=== PATIENT | male | born 1945 | race Caucasian/White ===

== ENCOUNTER 2022-11-14 12:05 | Observation (INO) ==
[2022-11-14 12:34] LABS: POC Calcium, Ionized 1.28 (1.16-1.32); POC Creatinine 2.2 (0.6-1.2); POC Potassium 4.4 (3.3-5.1)
[2022-11-14] MEDS ORDERED: 0.9 % SODIUM CHLORIDE 500 ML IV ONE ×2 (12:44→14:30)
--- NOTE | 2022-11-14 12:56 | Emergency Department Note ---
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 Patient is accompanied by his who states that the patient has had numerous falls since yesterday. Patient denies losing consciousness with the falls. He did hit his head with one of the falls this morning. He states that he becomes very weak and collapsed to the floor. His states that he is often confused after the falls. He denies a headache at this time. He denies any dizziness, chest pain, palpitations. He does report abdominal pain which sounds like a chronic issue ever since he had his surgery done last January. He also reports chronic back pain which is unchanged since the falls. He denies any focal weakness. He had an episode of vomiting yesterday though denies nausea at this time. He has chronic diarrhea at baseline though denies hematochezia or melena. He has an appointment with urology in 2 days to discuss his chronic hematuria. Denies fevers. Related Data Home Medications Medication Instructions Recorded Confirmed amlodipine 5 mg tablet 5 mg PO QDAY 11/17/16 10/27/22 atorvastatin 40 mg tablet 40 mg PO QDAY 11/17/16 10/27/22 temazepam 30 mg capsule 30 mg PO QHS 11/17/16 10/27/22 metformin 500 mg tablet,extended 500 mg PO QDAY 12/02/20 10/27/22 release 24 hr apixaban 5 mg tablet (Eliquis) 5 mg PO QDAY 08/10/22 10/27/22 duloxetine 30 mg capsule,delayed 30 mg PO QDAY 08/10/22 10/27/22 release gabapentin 300 mg capsule 600 mg PO TID 08/10/22 10/27/22 (Neurontin) methocarbamol 750 mg tablet 750 mg PO QID 11/14/22 11/14/22 Allergies Allergy/AdvReac Type Severity Reaction Status Date / Time isosorbide nitrate Allergy Unknown Rash and Uncoded 10/27/22 12:42 Severe headaches Review of Systems ROS ROS Narrative: Narrative: All systems ED: reviewed and negative except as stated. PFS Narrative Patient History Narrative: Narrative: Medical/Surgical/Family History All Active Problems (Updated 11/14/22 @ 16:06 by Alvin Heck MD) Acute retention of urine (Chronic) Diabetes mellitus, type II (Chronic) Hypercholesterolemia (Chronic) Chronic insomnia (Chronic) Nasal congestion (Chronic) Sinusitis (Chronic) CAD (coronary artery disease) (Chronic) PVD (peripheral vascular disease) (Chronic) RLS (restless legs syndrome) (Chronic) BPH (benign prostatic hyperplasia) (Chronic) Erectile dysfunction (Chronic) History of basal cell carcinoma (Chronic) Umbilical hernia (Chronic) History of left heart catheterization (Chronic) History of coronary angiogram (Chronic) HTN (hypertension) (Chronic) Tobacco abuse (Chronic) Other chest pain (Chronic) Hyperlipidemia (Chronic) Elevated PSA (Chronic) History of melanoma (Chronic) Fatigue (Chronic) Tinnitus (Chronic) Decreased hearing (Chronic) Dyspnea (Chronic) Slow urinary stream (Chronic) Urethral stricture (Chronic) UTI (urinary tract infection) (Chronic) Actinic keratosis (Chronic) Exposure to COVID-19 virus (Chronic) COPD (chronic obstructive pulmonary disease) (Chronic) Decreased renal function (Chronic) intermediate manager (current) use of anticoagulants (Chronic) snf (current) use of aspirin (Chronic) Malignant melanoma (Chronic) Skin cancer (Chronic) 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) Esophageal dysphagia (Chronic) Exposure to Agent [place] (Chronic) Urinary retention (Chronic) Chronic lower back pain (Chronic) Left lumbar radiculopathy (Chronic) Spinal stenosis in cervical region (Chronic) Pain in left knee (Chronic) Anxiety (Chronic) Callus of foot (Chronic) Nail dystrophy (Chronic) Hammertoe (Chronic) Other specified disorders of bone density and structure, multiple sites (Chronic) Tobacco use (Chronic) SOB (shortness of breath) (Chronic) Leg pain (Chronic) Right groin pain (Chronic) Lump (Chronic) Dizziness (Chronic) Dysphagia (Chronic) Palpitations (Chronic) Paresthesias (Chronic) Chest tightness (Chronic) Chronic headache (Chronic) Cataract (Chronic) [place] (hard of hearing) (Chronic) Back pain (Chronic) Pneumonia (Chronic) PTSD (post-traumatic stress disorder) (Chronic) Malaise (Chronic) Tingling (Chronic) Depression (Chronic) Difficulty walking (Chronic) Daytime sleepiness (Chronic) Atherosclerotic heart disease (Chronic) Cold feet (Chronic) Memory loss (Chronic) Confusion (Chronic) Snoring (Chronic) Paroxysmal nocturnal dyspnea (Chronic) Wears hearing aid (Chronic) Chest pain (Chronic) Near syncope (Chronic) Weakness (Chronic) Leg pain, bilateral (Chronic) Diaphoresis (Chronic) Muscle pain (Chronic) Joint pain (Chronic) Urinary frequency (Chronic) Hydronephrosis of left kidney (Chronic) Malignant neoplasm of left ureter (Chronic) Abdominal pain (Acute) Intra-abdominal lymphadenopathy (Acute) Orthostatic hypotension (Acute) Left pulmonary lesion (Acute) Recurrent falls (Acute) Medical History Actinic keratosis Acute retention of urine Anxiety Atherosclerotic heart disease Back pain BPH (benign prostatic hyperplasia) CAD (coronary artery disease) Callus of foot Bilateral Carcinoma in situ of skin of left ear Cataract Chest pain Chest tightness Chronic headache Chronic insomnia Chronic lower back pain Cold feet Confusion COPD (chronic obstructive pulmonary disease) Daytime sleepiness Decreased hearing Decreased renal function Depression Diabetes mellitus, type II w/ vascular complications Diaphoresis Difficulty walking Dizziness Dysphagia Dyspnea Exertion Elevated PSA Erectile dysfunction Esophageal dysphagia Exposure to Agent [place] Exposure to COVID-19 virus Fatigue Hammertoe History of angiography Coronary History of basal cell carcinoma left foot History of coronary angiogram History of left heart catheterization History of melanoma [place] (hard of hearing) HTN (hypertension) Hydronephrosis of left kidney Hypercholesterolemia Hyperlipidemia Joint pain Left lumbar radiculopathy Leg pain Leg pain, bilateral intermediate manager (current) use of anticoagulants intermediate manager (current) use of aspirin Lump Malaise Malignant melanoma Malignant neoplasm of left ureter Memory loss Muscle pain Nail dystrophy Nasal congestion Near syncope Other chest pain Other specified disorders of bone density and structure, multiple sites Pain in left knee Palpitations Paresthesias Paroxysmal nocturnal dyspnea Pneumonia PTSD (post-traumatic stress disorder) PVD (peripheral vascular disease) Right groin pain RLS (restless legs syndrome) Sinusitis Skin cancer Left arm Slow urinary stream Snoring SOB (shortness of breath) Spinal stenosis in cervical region Tingling Tinnitus Tobacco abuse Tobacco use Umbilical hernia Urethral stricture Urinary frequency Urinary retention UTI (urinary tract infection) Weakness Wears hearing aid Surgical History History of appendectomy History of basal cell carcinoma excision (10/15/15) left foot - Dr Shipley History of colonoscopy (04/16/15) History of cystoscopy (04/23/15) History of heart artery stent (~04/06/16) RCA/ Placement of 4 stents-2018 History of knee replacement (~08/2017) History of left knee replacement (~01/2020) History of nasal septoplasty History of percutaneous coronary intervention (09/10/14) to proximal left anterior descending artery with balloon angioplasty and placement of one drug-eluting stent History of prostate surgery (~01/2017) Holmium Laser Ablation History of surgery Left Ventriculography History of tonsillectomy History of total knee arthroplasty (~09/24/17) History of umbilical hernia repair (~2013) Hx of inguinal hernia surgery (~04/06/16) Family History Mother , age 65 Breast cancer Father , age 84 Emphysema, unspecified Parkinsonism Hypertension Diabetes Brother , age 50 Pneumonia Diabetes Sister , age 42 Breast cancer Other Heart attack Social History Smoking Status: Former smoker Alcohol Intake Frequency: holiday/special occasion only Substance Use: does not use Exam Narrative Narrative: Constitutional: Well-nourished, well-developed. No acute distress. HEENT: Normocephalic. Small contusion appreciated on the lateral eyelid and periorbital region. Patient denies any tenderness with palpation of the bilateral periorbital regions. No adair sign. No hemotympanum bilaterally. No obvious skull depressions or deformities appreciated. EOMI. Conjunctive are clear bilaterally. OP clear. Uvula midline. Moist mucous membranes. Throat s upple without adenopathy. Cardiovascular: Regular rate and rhythm. No murmurs, rubs, gallops. Pulmonary: No increased work of breathing. Lung sounds clear to auscultation bilaterally. No wheezing, rales, or rhonchi. Abdomen: Soft, nondistended. TTP around the stoma as well as in the right flank. Stoma is slightly protruding though is pink with no erythema surrounding the stoma site. I do not appreciate any blood in the urostomy bag though patient does have some sediment noted in the urostomy bag. Musculoskeletal: Normal muscular development. No obvious deformities. TTP of the medial joint line of the left knee. Patient has decreased ROM of the left knee secondary to pain and reports significant pain with flexion of the knee. No joint effusions appreciated. Patient reports tenderness with palpation of the bilateral paralumbar region. No tenderness with palpation directly over the cervical, thoracic or lumbar spine. No step-offs. Patient has full neck range of motion without eliciting pain. Skin: Warm, dry. No rash. Neurologic: Awake, alert, and oriented. Motor function grossly intact. Afocal. General Limitations: no limitations Course Course Course Narrative: The patient's blood pressure is soft into the low 90s, systolic, on arrival to ED. He did have a drop in his blood pressure to 78/49 with orthostatic vital signs. He was given 1 L NS. Patient was also tachycardic into the low 100s on arrival. He does not appear dehydrated on exam. WBC is WNL. Hemoglobin is stable at 9.7. EKG shows a sinus rhythm without findings to suggest acute cardiac ischemia. VBG shows a pH of 7.23. Acidemia etiology unclear. Lactic acid is WNL. Blood glucose is 166. Beta hydroxybutyrate negative. He is saturating in the high 90s on room air. Creatinine stable at 2.2. Troponin is negative. Urinalysis was collected and is pending. CT chest/abdomen/pelvis without contrast shows no acute pathology. 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 He also has a 10 mm nodule in the superior segment of the left lung which may represent a second primary lung carcinoma. He has unchanged atrophy of the left kidney as well as adenopathy in the left superior mediastinum, also suspicious for benign reactive adenopathy versus metastatic disease. Radiographs of the left knee and CT head show no ac mahogany pathology. Case was discussed with Dr. Moise who accepts patient for admission to the hospital for observation for orthostatic hypotension and recurrent falls. . Of note, the patient was recently started on methocarbamol which I suspect may also be contributing to falls. He also has a history of atrial fibrillation for which he is anticoagulated on Eliquis and it may also be possible that he is going in and out of A-fib which may be contributing as well. Consultations Consultation #1: Dr. Arroyo, internal medicine who accepts pt for admission Time: 15:45 Vital Signs Vital signs: Vital Signs Temperature 98.1 F 11/14/22 12:08 Pulse Rate 104 H 11/14/22 12:08 Respiratory Rate 18 11/14/22 12:08 Blood Pressure 91/57 11/14/22 12:08 Pulse Oximetry (%) 96 11/14/22 12:08 Oxygen Delivery Method Room Air 11/14/22 12:08 Temperature 98.1 F 11/14/22 12:08 Pulse Rate 96 H 11/14/22 14:24 Respiratory Rate 15 11/14/22 14:24 Blood Pressure 141/74 11/14/22 13:01 Pulse Oximetry (%) 99 11/14/22 14:24 Oxygen Delivery Method Room Air 11/14/22 12:08 MDM MDM Narrative Medical decision making narrative: Narrative: Differential Diagnosis Differential Diagnosis: Dysrhythmia, orthostatic hypotension, anemia, ICH, fracture, UTI Medical Records Medical records reviewed: Yes I reviewed the patient's medical records. Lab Data Lab results reviewed: Yes I reviewed the patient's lab results. 11/14/22 12:44 11/14/22 12:44 Labs: Lab Results 11/14/22 11/14/22 11/14/22 Range/Units 12:28 12:28 12:44 WBC 9.3 (4.5-11.0) K/mcL RBC 3.46 L (4.63-6.08) M/mcL Hgb 9.7 L (13.7-17.5) g/dL Hct 30.1 L (40.1-51.0) % POC Hct 30.0 L (41-55) MCV 87.0 (80.0-100.0) fL MCH 28.0 (26.0-34.0) pg MCHC 32.2 (31.0-36.0) g/dL RDW 13.3 (11.5-14.5) % Plt Count 328 (140-440) K/mcL MPV 10.3 (8.8-12.5) fL Immature Gran % (Auto) 0.4 (0.0-0.5) % Neut % (Auto) 63.8 (38.0-78.0) % Lymph % (Auto) 24.5 (15.5-49.0) % [place] % (Auto) 8.3 (1.0-12.0) % Eos % (Auto) 2.4 (0.0-7.0) % Baso % (Auto) 0.6 (0.0-2.0) % Lymph # (Auto) 2.28 (1.50-4.80) K/mcL [place] # (Auto) 0.77 (0.10-0.90) K/mcL Eos # (Auto) 0.22 (0.00-0.70) K/mcL Baso # (Auto) 0.06 (0.00-0.30) K/mcL Immature Gran # 0.04 (0.00-0.05) K/mcl Absolute Neutrophils 5.92 (1.80-8.00) K/mcL POC VBG pH (7.32-7.42) POC VBG pCO2 at Temp (41-51) POC VBG pO2 (25-40) POC VBG HCO3 (24-28) POC VBG Total CO2 (25-29) POC Venous O2 Sat (40-70) POC VBG Base Excess (-2-2) VBG Lactic Acid (0.5-2) POC Sodium 137 (133-145) POC Potassium 4.4 (3.3-5.1) POC Chloride 110 H (96-108) POC Total CO2 16.0 L (22-30) POC Anion Gap 16.0 (8.0-16.0) POC BUN 37 H (6-20) POC Creatinine 2.2 H (0.6-1.2) POC Glucose 166 H (70-105) POC WB Ioniz Calcium 1.28 (1.16-1.32) Total Bilirubin (0.1-1.0) mg/dL Direct Bilirubin (0-0.3) mg/dL AST (<40) U/L ALT (<40) U/L Alkaline Phosphatase (39-117) U/L NT-Pro-B Natriuret Pep (<450.0) pg/mL Total Protein (5.9-8.4) gm/dL Albumin (3.2-5.2) gm/dL Globulin (2.2-3.7) gm/dL Beta-Hydroxybutyrate (<0.27) mmol/L POC Troponin I < 0.02 L (0.02-0.08) 11/14/22 11/14/22 11/14/22 Range/Units 12:44 12:44 14:42 WBC (4.5-11.0) K/mcL RBC (4.63-6.08) M/mcL Hgb (13.7-17.5) g/dL Hct (40.1-51.0) % POC Hct (41-55) MCV (80.0-100.0) fL MCH (26.0-34.0) pg MCHC (31.0-36.0) g/dL RDW (11.5-14.5) % Plt Count (140-440) K/mcL MPV (8.8-12.5) fL Immature Gran % (Auto) (0.0-0.5) % Neut % (Auto) (38.0-78.0) % Lymph % (Auto) (15.5-49.0) % [place] % (Auto) (1.0-12.0) % Eos % (Auto) (0.0-7.0) % Baso % (Auto) (0.0-2.0) % Lymph # (Auto) (1.50-4.80) K/mcL [place] # (Auto) (0.10-0.90) K/mcL Eos # (Auto) (0.00-0.70) K/mcL Baso # (Auto) (0.00-0.30) K/mcL Immature Gran # (0.00-0.05) K/mcl Absolute Neutrophils (1.80-8.00) K/mcL POC VBG pH 7.23 L (7.32-7.42) POC VBG pCO2 at Temp 45.5 (41-51) POC VBG pO2 19 L (25-40) POC VBG HCO3 18.9 L (24-28) POC VBG Total CO2 20.0 L (25-29) POC Venous O2 Sat 21.0 L (40-70) POC VBG Base Excess -9.0 L (-2-2) VBG Lactic Acid 0.7 (0.5-2) POC Sodium (133-145) POC Potassium (3.3-5.1) POC Chloride (96-108) POC Total CO2 (22-30) POC Anion Gap (8.0-16.0) POC BUN (6-20) POC Creatinine (0.6-1.2) POC Glucose (70-105) POC WB Ioniz Calcium (1.16-1.32) Total Bilirubin 0.2 (0.1-1.0) mg/dL Direct Bilirubin < 0.2 (0-0.3) mg/dL AST 15 (<40) U/L ALT 12 (<40) U/L Alkaline Phosphatase 108 (39-117) U/L NT-Pro-B Natriuret Pep 123.7 (<450.0) pg/mL Total Protein 7.2 (5.9-8.4) gm/dL Albumin 3.8 (3.2-5.2) gm/dL Globulin 3.4 (2.2-3.7) gm/dL Beta-Hydroxybutyrate 0.17 (<0.27) mmol/L POC Troponin I (0.02-0.08) Radiology Data Radiology results reviewed: Yes I reviewed the patient's radiology results. Radiology results narrative: [facility] NAME: Kobe Tanner [address] [place] [address] : 1945 [address] Service Date: 11/14/22 Report # [id number] [place] [address] Homer Michael M.D. MR #: [id number] Cat Scan Report Signed Ordering Physician: Alvin Heck M.D. Date of Service: 11/14/22 Procedure(s): CT head/brain wo con Accession Number(s): [id number] CLINICAL INFORMATION: On anticoagulation history of multiple falls COMPARISON: None. TECHNIQUE: 2.5 mm helical slices were obtained in the skull base to vertex. Following reconstruction, axial reformatted images were reviewed at bone and parenchymal windows. The exam was performed using radiation dose optimization techniques including, but not limited to, automated exposure control, adjustment of the mA and/or kV according to patient size and use of iterative reconstruction technique. FINDINGS: The ventricles, sulci, fissures, and cisterns are symmetrically enlarged compatible with mild age-related atrophy. No extra-axial fluid collections are identified. Mild patchy chronic ischemic changes, in the deep cerebral white matter, are expected for age. There is no hemorrhage, mass effect, or edema. Bone windows show no osseous abnormality. IMPRESSION: Mild atrophy and chronic ischemic changes in the deep cerebral white matter-expected for age. No acute findings Interpreted and Authenticated by: Homer Michael 11/14/22 1342 134 Retail Representative: <Electronically signed by Homer Michael M.D. in OV> 11/14/22 1347 CC: Homer Michael M.D.; Alvin Heck M.D.; Suzanne Rincon M.D.~ [facility] NAME: Kobe Tanner [address] [place] [address] : 1945 [address] Service Date: 11/14/22 Report # [id number] JADA Thomas [address] Homer Michael M.D. MR #: [id number] XRay Report Signed Ordering Physician: Alvin Heck M.D. Date of Service: 11/14/22 Procedure(s): XR knee LT 3V Accession Number(s): [id number] CLINICAL INFORMATION: fall, left knee pain COMPARISON: 03/21/2020 FINDINGS: Total knee prosthesis remains anatomically aligned without loosening or infection. There is no fracture or other osseous abnormality. Soft tissues are normal. IMPRESSION: Negative Interpreted and Authenticated by: Homer Michael 11/14/22 1414 13 Retail Representative: <Electronically signed by Homer Michael M.D. in OV> 11/14/22 1415 CC: Homer Michael M.D.; Alvin Heck M.D.; Suzanne Rincon M.D.~ [facility] NAME: Kobe Tanner [address] [place] [address] : 1945 [address] Service Date: 11/14/22 Report # [id number] JADA Thomas [address] Homer Michael M.D. MR #: [id number] Cat Scan Report Signed Ordering Physician: Alvin Heck M.D. Date of Service: 11/14/22 Procedure(s): CT chest abdomen pelvis wo con Accession Number(s): [id number] CLINICAL INFORMATION: falls, abdominal pain, back pain, SOB COMPARISON: CT abdomen and pelvis 08/03/2022 TECHNIQUE: 0.625 mm helical slices were obtained from the lung apices through the subtrochanteric regions of the femurs. Following reconstruction, 2.5 mm sagittal, coronal and axial reformatted images were processed and reviewed at multiple windows and levels. 7 mm MIP reconstructions were obtained through the lungs to optimize nodule detection.The exam was performed using radiation dose optimization techniques including, but not limited to, automated exposure control, adjustment of the mA and/or kV according to patient size and use of iterative reconstruction technique. FINDINGS: Pulmonary parenchymal windows show mild centrilobular emphysema featuring chronic bronchitis with elevated lung volumes and wall thickening/dilatation of bronchi. Multiple bullae are seen in the upper lobes and scattered fibrosis in the periphery of both mid and lower lungs. A 10 mm well-circumscribed nodule in the superior segment of the left lower lobe on image 55 may represent primary or metastatic malignancy. A 13 mm pleural-based vague wedge-shaped density in the lateral basilar segment of the right lower lobe on image 86 is likely fibrosis. No infiltrates.. Pleural spaces are unremarkable-no effusions. Mediastinal windows show the heart is mildly enlarged. Multiple stents and heavy calcific plaque in the coronary arteries. The noncontrast thoracic aorta and pulmonary arteries are normal in diameter. There are 3-4 moderately enlarged lymph nodes in the left superior mediastinum adjacent to the carotid artery ranging up to 14 mm. There are also multiple lymph nodes in the left axillary region ranging up to 12 with edema in the surrounding fat. Esophagus is grossly normal. The thyroid is unremarkable. Abdominal images show the noncontrasted gallbladder and bile ducts, liver, adrenal glands, spleen, pancreas and aorta are normal in size, configuration and attenuation without focal lesion. There are multiple mildly enlarged retroperitoneal lymph nodes in the infrarenal periaortic and pericaval region ranging up to 18 mm inferior to the left renal hilum. These were not present on the previous exam. There is no free air or free fluid. The left kidney is atrophic: 7 cm in length. 17 mm cyst projecting from the lateral left kidney is unchanged Right kidney is normal size 11 cm in length. The lesion Urinary bladder is surgically absent and there is a urostomy in the right midabdomen. Transplanted ureters appear normal. Small bowel resection changes seen in the distal ileum. The remainder of the small bowel, large bowel and stomach are grossly normal. The appendix is surgically absent. Bone windows show no metastases or other significant osseous abnormality. IMPRESSION: 1. No posttraumatic change. 2. Multiple mildly enlarged retroperitoneal lymph nodes in the infrarenal periaortic and pericaval region. 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 3. 10 mm solid nodule in the superior segment of the left lower lobe may represent a second primary lung carcinoma. A solitary pulmonary metastasis from bladder carcinoma would be unusual . A second more vague triangle shaped pleural-based density in the lateral basilar segment right lower lobe more likely fibrosis. 4. Cystectomy changes with with urostomy right mid abdomen. Transplanted ureters appear normal. 5. Atrophy of the left kidney with mild compensatory hypertrophy of the right kidney. 6. Adenopathy in the left superior mediastinum and the left axillary region. This may be metastatic or benign reactive adenopathy. The constellation of findings in this patient will likely require PET/CT to determine the extent of metastatic disease. Interpreted and Authenticated by: Homer Michael 11/14/22 1348 1348 Retail Representative: <Electronically signed by Homer Michael M.D. in OV> 11/14/22 1414 CC: Homer Michael M.D.; Alvin Heck M.D.; Suzanne Rincon M.D.~ EKG Data EKG #1: EKG attestation: Yes I reviewed and interpreted this EKG. and Yes There are no EKG findings of acute coronary syndrome EKG results narrative: Sinus rhythm. Rate 93. Left axis deviation. No ST elevation or depression. Inferior Q waves. Normal T waves. Discharge Plan Patient/Caregiver Discharge Instructions Pt seen by LEAD INVESTIGATOR/PA only: No Clinical Impression: Intra-abdominal lymphadenopathy, Orthostatic hypotension, Left pulmonary lesion, Recurrent falls Patient Disposition: Xfer As Inpt ([facility]) Condition: Fair Follow up with: Suzanne Rincon MD [Primary Care Provider] - Prescriptions: No Action amlodipine 5 mg tablet 5 mg PO QDAY atorvastatin 40 mg tablet 40 mg PO QDAY temazepam 30 mg capsule 30 mg PO QHS metformin 500 mg tablet extended release 24 hr 500 mg PO QDAY gabapentin [Neurontin] 300 mg capsule 600 mg PO TID Eliquis 5 mg tablet 5 mg PO QDAY Patient Comments: [NO ORIGINAL SIG] methocarbamol [Robaxin] 750 mg Tablet 750 mg PO QID duloxetine 30 mg capsule,delayed release(DR/EC) 30 mg PO QDAY
[2022-11-14 13:22] LABS: Basophils # (Auto) 0.06 K/mcL (0.00-0.30); Basophils % (Auto) 0.6 % (0.0-2.0); Eosinophils # (Auto) 0.22 K/mcL (0.00-0.70); Eosinophils % (Auto) 2.4 % (0.0-7.0); Hematocrit 30.1 % (40.1-51.0); Hemoglobin 9.7 g/dL (13.7-17.5); Lymphocytes # (Auto) 2.28 K/mcL (1.50-4.80); Lymphocytes % (Auto) 24.5 % (15.5-49.0); Mean Corpuscular HGB Conc 32.2 g/dL (31.0-36.0); Mean Platelet Volume 10.3 fL (8.8-12.5); Monocytes # (Auto) 0.77 K/mcL (0.10-0.90); Monocytes % (Auto) 8.3 % (1.0-12.0); Neutrophils % (Auto) 63.8 % (38.0-78.0); Platelet Count 328 K/mcL (140-440); RBC 3.46 M/mcL (4.63-6.08); Red Cell Distribution Width 13.3 % (11.5-14.5); WBC 9.3 K/mcL (4.5-11.0)
[2022-11-14 13:43] LABS: ALT/SGPT 12 U/L (<40); AST/SGOT 15 U/L (<40); Albumin 3.8 gm/dL (3.2-5.2); Alkaline Phosphatase 108 U/L (39-117); Bilirubin,Direct < 0.2 mg/dL (0-0.3); Bilirubin,Total 0.2 mg/dL (0.1-1.0); Globulin 3.4 gm/dL (2.2-3.7)
[2022-11-14 13:44] LABS: proBNP 123.7 pg/mL (<450.0)
--- NOTE | 2022-11-14 13:52 | Cat Scan Report ---
CLINICAL INFORMATION: On anticoagulation history of multiple falls COMPARISON: None. TECHNIQUE: 2.5 mm helical slices were obtained in the skull base to vertex. Following reconstruction, axial reformatted images were reviewed at bone and parenchymal windows. The exam was performed using radiation dose optimization techniques including, but not limited to, automated exposure control, adjustment of the mA and/or kV according to patient size and use of iterative reconstruction technique. FINDINGS: The ventricles, sulci, fissures, and cisterns are symmetrically enlarged compatible with mild age-related atrophy. No extra-axial fluid collections are identified. Mild patchy chronic ischemic changes, in the deep cerebral white matter, are expected for age. There is no hemorrhage, mass effect, or edema. Bone windows show no osseous abnormality. IMPRESSION: Mild atrophy and chronic ischemic changes in the deep cerebral white matter-expected for age. No acute findings Interpreted and Authenticated by: Homer Michael 11/14/22
--- NOTE | 2022-11-14 14:18 | Cat Scan Report ---
CLINICAL INFORMATION: falls, abdominal pain, back pain, SOB COMPARISON: CT abdomen and pelvis 08/03/2022 TECHNIQUE: 0.625 mm helical slices were obtained from the lung apices through the subtrochanteric regions of the femurs. Following reconstruction, 2.5 mm sagittal, coronal and axial reformatted images were processed and reviewed at multiple windows and levels. 7 mm MIP reconstructions were obtained through the lungs to optimize nodule detection.The exam was performed using radiation dose optimization techniques including, but not limited to, automated exposure control, adjustment of the mA and/or kV according to patient size and use of iterative reconstruction technique. FINDINGS: Pulmonary parenchymal windows show mild centrilobular emphysema featuring chronic bronchitis with elevated lung volumes and wall thickening/dilatation of bronchi. Multiple bullae are seen in the upper lobes and scattered fibrosis in the periphery of both mid and lower lungs. A 10 mm well-circumscribed nodule in the superior segment of the left lower lobe on image 55 may represent primary or metastatic malignancy. A 13 mm pleural-based vague wedge-shaped density in the lateral basilar segment of the right lower lobe on image 86 is likely fibrosis. No infiltrates.. Pleural spaces are unremarkable-no effusions. Mediastinal windows show the heart is mildly enlarged. Multiple stents and heavy calcific plaque in the coronary arteries. The noncontrast thoracic aorta and pulmonary arteries are normal in diameter. There are 3-4 moderately enlarged lymph nodes in the left superior mediastinum adjacent to the carotid artery ranging up to 14 mm. There are also multiple lymph nodes in the left axillary region ranging up to 12 with edema in the surrounding fat. Esophagus is grossly normal. The thyroid is unremarkable. Abdominal images show the noncontrasted gallbladder and bile ducts, liver, adrenal glands, spleen, pancreas and aorta are normal in size, configuration and attenuation without focal lesion. There are multiple mildly enlarged retroperitoneal lymph nodes in the infrarenal periaortic and pericaval region ranging up to 18 mm inferior to the left renal hilum. These were not present on the previous exam. There is no free air or free fluid. The left kidney is atrophic: 7 cm in length. 17 mm cyst projecting from the lateral left kidney is unchanged Right kidney is normal size 11 cm in length. The lesion Urinary bladder is surgically absent and there is a urostomy in the right midabdomen. Transplanted ureters appear normal. Small bowel resection changes seen in the distal ileum. The remainder of the small bowel, large bowel and stomach are grossly normal. The appendix is surgically absent. Bone windows show no metastases or other significant osseous abnormality. IMPRESSION: 1. No posttraumatic change. 2. Multiple mildly enlarged retroperitoneal lymph nodes in the infrarenal periaortic and pericaval region. 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 3. 10 mm solid nodule in the superior segment of the left lower lobe may represent a second primary lung carcinoma. A solitary pulmonary metastasis from bladder carcinoma would be unusual . A second more vague triangle shaped pleural-based density in the lateral basilar segment right lower lobe more likely fibrosis. 4. Cystectomy changes with with urostomy right mid abdomen. Transplanted ureters appear normal. 5. Atrophy of the left kidney with mild compensatory hypertrophy of the right kidney. 6. Adenopathy in the left superior mediastinum and the left axillary region. This may be metastatic or benign reactive adenopathy. The constellation of findings in this patient will likely require PET/CT to determine the extent of metastatic disease. Interpreted and Authenticated by: Homer Michael 11/14/22
--- NOTE | 2022-11-14 14:18 | XRay Report ---
CLINICAL INFORMATION: fall, left knee pain COMPARISON: 03/21/2020 FINDINGS: Total knee prosthesis remains anatomically aligned without loosening or infection. There is no fracture or other osseous abnormality. Soft tissues are normal. IMPRESSION: Negative Interpreted and Authenticated by: Homer Michael 11/14/22
--- NOTE | 2022-11-14 16:33 | Internal Med History&Physical ---
HPI History of Present Illness Patient information: Note initiated : 11/14/22 at 4:18 pm Service Date, if different from initiated Date: [] Patient: Kobe Tanner a 77 y/o M admitted on . Chief Complaint: [] History of present illness: Mr. Tanner is a 77 year old M Presents to the ED after falling 3 times today while he was in the supermarket. He also fell several times in the past week. Patient states that he suddenly gets weak and falls. He does not lose consciousness does not get dizzy or lightheaded just gets suddenly very weak and falls. 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 He did have an episode of nausea vomiting yesterday. Work-up in the ED revealed positive orthostatic hypotension vital signs. Mild t achycardia since been here. BUN/cr was mildly elevated above baseline. Patient has chronic diarrhea but has been worse since surgery. EKG in the ED showed normal sinus rhythm. Troponin unremarkable. Lactate unremarkable. He also noted to have an nonanion gap acidosis, likely from chronic diarrhea. His chronic anemia appears to be at baseline. Patient denies chest pain shortness of breath. No abdominal pain. Review of Systems: Pertinent positives as above. Denies headache/fever/chills/chest or abdominal pain/cough/dyspnea. Remaining 10 point review of system reviewed negative PHYSICAL EXAM General: Alert, Awake, No acute Distress Eyes/N/T: EOMI, no scleral icterus, PERRL, DMM Head/Neck: neck supple, full ROM, normocephalic atraumatic CV: Mildly tacky but regular, No murmurs, normal s1/s2 Pulm: Clear b/l, no wheezing/rhonchi/rales, no respiratory distress Abd: soft, nontender, +BS x4 Ext: no clubbing/cyanosis/edema, nontender Neuro: Alert, CN 2-12 grossly intact, no focal deficits, moves all extremities, , sensations intact b/l upper/lower Psychiatric: Skin: warm/dry, normal color PFSH PFSH All Active Problems (Updated 11/14/22 @ 16:06 by Alvin Heck MD) Acute retention of urine (Chronic) Diabetes mellitus, type II (Chronic) Hypercholesterolemia (Chronic) Chronic insomnia (Chronic) Nasal congestion (Chronic) Sinusitis (Chronic) CAD (coronary artery disease) (Chronic) PVD (peripheral vascular disease) (Chronic) RLS (restless legs syndrome) (Chronic) BPH (benign prostatic hyperplasia) (Chronic) Erectile dysfunction (Chronic) History of basal cell carcinoma (Chronic) Umbilical hernia (Chronic) History of left heart catheterization (Chronic) History of coronary angiogram (Chronic) HTN (hypertension) (Chronic) Tobacco abuse (Chronic) Other chest pain (Chronic) Hyperlipidemia (Chronic) Elevated PSA (Chronic) History of melanoma (Chronic) Fatigue (Chronic) Tinnitus (Chronic) Decreased hearing (Chronic) Dyspnea (Chronic) Slow urinary stream (Chronic) Urethral stricture (Chronic) UTI (urinary tract infection) (Chronic) Actinic keratosis (Chronic) Exposure to COVID-19 virus (Chronic) COPD (chronic obstructive pulmonary disease) (Chronic) Decreased renal function (Chronic) 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) MCC (current) use of aspirin (Chronic) Malignant melanoma (Chronic) Skin cancer (Chronic) 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) Esophageal dysphagia (Chronic) Exposure to Agent [place] (Chronic) Urinary retention (Chronic) Chronic lower back pain (Chronic) Left lumbar radiculopathy (Chronic) Spinal stenosis in cervical region (Chronic) Pain in left knee (Chronic) Anxiety (Chronic) Callus of foot (Chronic) Nail dystrophy (Chronic) Hammertoe (Chronic) Other specified disorders of bone density and structure, multiple sites (Chronic) Tobacco use (Chronic) SOB (shortness of breath) (Chronic) Leg pain (Chronic) Right groin pain (Chronic) Lump (Chronic) Dizziness (Chronic) Dysphagia (Chronic) Palpitations (Chronic) Paresthesias (Chronic) Chest tightness (Chronic) Chronic headache (Chronic) Cataract (Chronic) UPPER [place] (hard of hearing) (Chronic) Back pain (Chronic) Pneumonia (Chronic) PTSD (post-traumatic stress disorder) (Chronic) Malaise (Chronic) Tingling (Chronic) Depression (Chronic) Difficulty walking (Chronic) Daytime sleepiness (Chronic) Atherosclerotic heart disease (Chronic) Cold feet (Chronic) Memory loss (Chronic) Confusion (Chronic) Snoring (Chronic) Paroxysmal nocturnal dyspnea (Chronic) Wears hearing aid (Chronic) Chest pain (Chronic) Near syncope (Chronic) Weakness (Chronic) Leg pain, bilateral (Chronic) Diaphoresis (Chronic) Muscle pain (Chronic) Joint pain (Chronic) Urinary frequency (Chronic) Hydronephrosis of left kidney (Chronic) Malignant neoplasm of left ureter (Chronic) Abdominal pain (Acute) Intra-abdominal lymphadenopathy (Acute) Orthostatic hypotension (Acute) Left pulmonary lesion (Acute) Recurrent falls (Acute) Medical History Actinic keratosis Acute retention of urine Anxiety Atherosclerotic heart disease Back pain BPH (benign prostatic hyperplasia) CAD (coronary artery disease) Callus of foot Bilateral Carcinoma in situ of skin of left ear Cataract Chest pain Chest tightness Chronic headache Chronic insomnia Chronic lower back pain Cold feet Confusion COPD (chronic obstructive pulmonary disease) Daytime sleepiness Decreased hearing Decreased renal function Depression Diabetes mellitus, type II w/ vascular complications Diaphoresis Difficulty walking Dizziness Dysphagia Dyspnea Exertion Elevated PSA Erectile dysfunction Esophageal dysphagia Exposure to Agent [place] Exposure to COVID-19 virus Fatigue Hammertoe History of angiography Coronary History of basal cell carcinoma left foot History of coronary angiogram History of left heart catheterization History of melanoma UPPER [place] (hard of hearing) HTN (hypertension) Hydronephrosis of left kidney Hypercholesterolemia Hyperlipidemia Joint pain Left lumbar radiculopathy Leg pain Leg pain, bilateral MCC (current) use of anticoagulants MCC (current) use of aspirin Lump Malaise Malignant melanoma Malignant neoplasm of left ureter Memory loss Muscle pain Nail dystrophy Nasal congestion Near syncope Other chest pain Other specified disorders of bone density and structure, multiple sites Pain in left knee Palpitations Paresthesias Paroxysmal nocturnal dyspnea Pneumonia PTSD (post-traumatic stress disorder) PVD (peripheral vascular disease) Right groin pain RLS (restless legs syndrome) Sinusitis Skin cancer Left arm Slow urinary stream Snoring SOB (shortness of breath) Spinal stenosis in cervical region Tingling Tinnitus Tobacco abuse Tobacco use Umbilical hernia Urethral stricture Urinary frequency Urinary retention UTI (urinary tract infection) Weakness Wears hearing aid Surgical History History of appendectomy History of basal cell carcinoma excision (10/15/15) left foot - Dr Shipley History of colonoscopy (04/16/15) History of cystoscopy (04/23/15) History of heart artery stent (~04/06/16) RCA/ Placement of 4 stents-2018 History of knee replacement (~08/2017) History of left knee replacement (~01/2020) History of nasal septoplasty History of percutaneous coronary intervention (09/10/14) to proximal left anterior descending artery with balloon angioplasty and plac ement of one drug-eluting stent History of prostate surgery (~01/2017) Holmium Laser Ablation History of surgery Left Ventriculography History of tonsillectomy History of total knee arthroplasty (~09/24/17) History of umbilical hernia repair (~2013) Hx of inguinal hernia surgery (~04/06/16) Family History Mother , age 65 Breast cancer Father , age 84 Emphysema, unspecified Parkinsonism Hypertension Diabetes Brother , age 50 Pneumonia Diabetes Sister , age 42 Breast cancer Other Heart attack Social History marital status: occupational status: retired physical activity: other details: Active life frequency: 3-4 times per week smoking status: Former smoker smoking status start date: 05/03/1961 smoking status stop date: 05/03/14 alcohol intake frequency: holiday/special occasion only substance use type: does not use MEDS/ALLERGIES Home Medications and Allergies Home Medications Medication Instructions Recorded Confirmed Type amlodipine 5 mg tablet 5 mg PO QDAY 11/17/16 10/27/22 History atorvastatin 40 mg tablet 40 mg PO QDAY 11/17/16 10/27/22 History temazepam 30 mg capsule 30 mg PO QHS 11/17/16 10/27/22 History metformin 500 mg tablet,extended 500 mg PO QDAY 12/02/20 10/27/22 History release 24 hr apixaban 5 mg tablet (Eliquis) 5 mg PO QDAY 08/10/22 10/27/22 History duloxetine 30 mg capsule,delayed 30 mg PO QDAY 08/10/22 10/27/22 History release gabapentin 300 mg capsule 600 mg PO TID 08/10/22 10/27/22 History (Neurontin) methocarbamol 750 mg tablet 750 mg PO QID 11/14/22 11/14/22 History Allergies Allergy/AdvReac Type Severity Reaction Status Date / Time isosorbide nitrate Allergy Unknown Rash and Uncoded 10/27/22 12:42 Severe headaches EXAM Constitutional Vitals: Temp Pulse Resp BP Pulse Ox O2 Del Method 98.1 F 88 21 141/74 97 Room Air 11/14/22 12:08 11/14/22 16:05 11/14/22 16:05 11/14/22 13:01 11/14/22 16:05 11/14/22 12:08 DATA Data Completed and Pending Labs: Labs from last 24 hours 11/14/22 11/14/22 11/14/22 14:42 12:44 12:44 WBC RBC Hgb Hct POC Hct MCV MCH MCHC RDW Plt Count MPV Immature Gran % (Auto) Neut % (Auto) Lymph % (Auto) Lynn % (Auto) Eos % (Auto) Baso % (Auto) Lymph # (Auto) Lynn # (Auto) Eos # (Auto) Baso # (Auto) Immature Gran # Absolute Neutrophils POC VBG pH 7.23 L POC VBG pCO2 at Temp 45.5 POC VBG pO2 19 L POC VBG HCO3 18.9 L POC VBG Total CO2 20.0 L POC Venous O2 Sat 21.0 L POC VBG Base Excess -9.0 L VBG Lactic Acid 0.7 POC Sodium Sodium Pending POC Potassium Potassium Pending POC Chloride Chloride Pending Carbon Dioxide Pending POC Total CO2 Anion Gap Pending POC Anion Gap POC BUN BUN Pending Creatinine Pending POC Creatinine GFR Calculation Pending Glucose Pending POC Glucose Uric Acid 6.7 Calcium Pending POC WB Ioniz Calcium Phosphorus Pending Total Bilirubin Direct Bilirubin AST ALT Alkaline Phosphatase NT-Pro-B Natriuret Pep Total Protein Albumin Pending Globulin Beta-Hydroxybutyrate POC Troponin I 11/14/22 11/14/22 11/14/22 12:44 12:44 12:44 WBC 9.3 RBC 3.46 L Hgb 9.7 L Hct 30.1 L POC Hct MCV 87.0 MCH 28.0 MCHC 32.2 RDW 13.3 Plt Count 328 MPV 10.3 Immature Gran % (Auto) 0.4 Neut % (Auto) 63.8 Lymph % (Auto) 24.5 Lynn % (Auto) 8.3 Eos % (Auto) 2.4 Baso % (Auto) 0.6 Lymph # (Auto) 2.28 Lynn # (Auto) 0.77 Eos # (Auto) 0.22 Baso # (Auto) 0.06 Immature Gran # 0.04 Absolute Neutrophils 5.92 POC VBG pH POC VBG pCO2 at Temp POC VBG pO2 POC VBG HCO3 POC VBG Total CO2 POC Venous O2 Sat POC VBG Base Excess VBG Lactic Acid POC Sodium Sodium POC Potassium Potassium POC Chloride Chloride Carbon Dioxide POC Total CO2 Anion Gap POC Anion Gap POC BUN BUN Creatinine POC Creatinine GFR Calculation Glucose POC Glucose Uric Acid Calcium POC WB Ioniz Calcium Phosphorus Total Bilirubin 0.2 Direct Bilirubin < 0.2 AST 15 ALT 12 Alkaline Phosphatase 108 NT-Pro-B Natriuret Pep 123.7 Total Protein 7.2 Albumin 3.8 Globulin 3.4 Beta-Hydroxybutyrate 0.17 POC Troponin I 11/14/22 11/14/22 12:28 12:28 WBC RBC Hgb Hct POC Hct 30.0 L MCV MCH MCHC RDW Plt Count MPV Immature Gran % (Auto) Neut % (Auto) Lymph % (Auto) Lynn % (Auto) Eos % (Auto) Baso % (Auto) Lymph # (Auto) Lynn # (Auto) Eos # (Auto) Baso # (Auto) Immature Gran # Absolute Neutrophils POC VBG pH POC VBG pCO2 at Temp POC VBG pO2 POC VBG HCO3 POC VBG Total CO2 POC Venous O2 Sat POC VBG Base Excess VBG Lactic Acid POC Sodium 137 Sodium POC Potassium 4.4 Potassium POC Chloride 110 H Chloride Carbon Dioxide POC Total CO2 16.0 L Anion Gap POC Anion Gap 16.0 POC BUN 37 H BUN Creatinine POC Creatinine 2.2 H GFR Calculation Glucose POC Glucose 166 H Uric Acid Calcium POC WB Ioniz Calcium 1.28 Phosphorus Total Bilirubin Direct Bilirubin AST ALT Alkaline Phosphatase NT-Pro-B Natriuret Pep Total Protein Albumin Globulin Beta-Hydroxybutyrate POC Troponin I < 0.02 L A/P Narrative A/P Narrative: A: *Frequent falls: likely multifactorial including meds (robaxin/norvasc), dehydration from diarrhea, orthostasis *Orthostatic hypotension: multifactorial including meds (robaxin/norvasc), dehydration from diarrhea *Generalized weakness/deconditioning: *Diarrhea, chronic: But worse since last surgery *Volume Depletion: *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: -CT a/p with enlarged RP LAD concerning for metastatic dz *PAF: on Eliquis has not been on any rate controlling medications *DM w/neuropathy: *CAD w/stents: *HTN/HLD: *Anemia, chrnoic: *Memory Deficits: *CKD IIIb: *chronic back pain P: -IVF -hold norvasc/robaxin -imodium - -SSI, -Hold metformin for CKD -cont statin -Home medication reconciliation -PT/OT -referral to oncologist for evaluation of metastatic lymphadenopathy and h/o urothelial carcinoma -ppx: Home Eliquis Time Spent With Patient Time: Total time spent is greater than 50% in coordination of care (as documented) at patient's floor/unit and/or counseling patient: Initial: Total time with patient: 75 - 90 minutes
[2022-11-14 16:49] LABS: Albumin 3.8 gm/dL (3.2-5.2); Calcium 9.2 mg/dL (8.6-10.4); Phosphorous 3.1 mg/dL (2.5-4.5)
[2022-11-14] MEDS ORDERED: MAGNESIUM SULFATE 2 GM/50 ML BAG IV PRN (17:20)
[2022-11-14] MEDS ORDERED: LOPERAMIDE 2 MG CAPSULE PO SCH (17:20)
[2022-11-14] MEDS ORDERED: POTASSIUM CHLORIDE 20 MEQ TABLET PO PRN ×2 (17:20)
[2022-11-14] MEDS ORDERED: METOPROLOL TARTRATE 5 MG/5 ML VIAL IV PRN (17:20)
[2022-11-14] MEDS ORDERED: DEXTROSE 31 GM ORAL.SUSP PO PRN (17:20)
[2022-11-14] MEDS ORDERED: ACETAMINOPHEN 325 MG TABLET PO PRN (17:20)
[2022-11-14] MEDS ORDERED: DEXTROSE 50% 50 ML VIAL IV PRN (17:20)
[2022-11-14] MEDS ORDERED: LOPERAMIDE 2 MG CAPSULE PO PRN (17:20)
[2022-11-14] MEDS ORDERED: IPRATROPIUM/ALBUTEROL 3 ML AMPUL.NEB NEB PRN (17:20)
[2022-11-14] MEDS ORDERED: ONDANSETRON 4 MG/2 ML VIAL IV PRN (17:20)
[2022-11-14] MEDS ORDERED: POTASSIUM CHLORIDE 40 MEQ in DEXTROSE 5% IN WATER 500 ML IV PRN (17:20)
[2022-11-14 17:22] LABS: Appearance,Urine CLOUDY (Clear); Bacteria,Urine FEW /hpf (0); Bilirubin,Urine Negative (Negative); Color,Urine Brown; Culture Indicated,Urine yes; Glucose,Urine (UA) Negative (Negative); Ketones,Urine Negative (Negative); Leukocyte Esterase,Urine 500 /uL (Negative); Nitrate,Urine Negative (Negative); Protein,Urine 100 mg/dL (Negative); Specific Gravity,Urine 1.013 (1.000-1.035); Urine RBC 115 /hpf (0-3); Urine Squamous Epithelial Cell 0 /hpf (0-4); Urine WBC 30 /hpf (0-4); Urobilinogen,Urine Negative
[2022-11-14] MEDS: INSULIN LISPRO 1 UNIT/0.01 ML UNIT SQ SCH ×2 (17:43→21:40)
[2022-11-14] MEDS: 0.9 % SODIUM CHLORIDE 1,000 ML IV SCH (17:48)
[2022-11-14] MEDS: HYDROcodone/APAP 5/325MG TABLET PO PRN (18:26)
[2022-11-14] MEDS ORDERED: HYDROcodone/APAP 5/325MG TABLET PO ONE (18:28)
[2022-11-14] MEDS: SODIUM BICARBONATE 650 MG TABLET PO SCH ×2 (19:33→21:40)
[2022-11-14] MEDS: cefTRIAXone 1 GM VIAL IV SCH (19:33)
[2022-11-15] MEDS: HYDROcodone/APAP 5/325MG TABLET PO PRN ×4 (03:27→20:30)
[2022-11-15] MEDS: 0.9 % SODIUM CHLORIDE 1,000 ML IV SCH (03:27)
[2022-11-15 06:29] LABS: Basophils # (Auto) 0.06 K/mcL (0.00-0.30); Basophils % (Auto) 0.8 % (0.0-2.0); Eosinophils # (Auto) 0.21 K/mcL (0.00-0.70); Eosinophils % (Auto) 2.7 % (0.0-7.0); Hematocrit 26.1 % (40.1-51.0); Hemoglobin 8.2 g/dL (13.7-17.5); Lymphocytes # (Auto) 1.64 K/mcL (1.50-4.80); Mean Corpuscular HGB Conc 31.4 g/dL (31.0-36.0); Mean Platelet Volume 10.4 fL (8.8-12.5); Monocytes # (Auto) 0.77 K/mcL (0.10-0.90); Monocytes % (Auto) 9.8 % (1.0-12.0); Neutrophils % (Auto) 65.4 % (38.0-78.0); Platelet Count 249 K/mcL (140-440); Red Cell Distribution Width 13.2 % (11.5-14.5); WBC 7.8 K/mcL (4.5-11.0)
[2022-11-15 06:39] LABS: ALT/SGPT 10 U/L (<40); AST/SGOT 13 U/L (<40); Albumin 2.8 gm/dL (3.2-5.2); Albumin/Globulin Ratio 0.9 (1.0-2.3); Alkaline Phosphatase 84 U/L (39-117); Bilirubin,Direct < 0.2 mg/dL (0-0.3); Bilirubin,Total < 0.2 mg/dL (0.1-1.0); Blood Urea Nitrogen 31 mg/dL (8-23); Calcium 8.2 mg/dL (8.6-10.4); Carbon Dioxide 17 mmol/L (22-30); Chloride 113 mmol/L (96-108); Glomerular Filtration Rate 37; Glucose 143 mg/dL (70-105); Lactate Dehydrogenase 167 U/L (135-225); Triglycerides 128 mg/dL (<150); Uric Acid 6.1 mg/dL (2.5-8.0)
[2022-11-15] MEDS: INSULIN LISPRO 1 UNIT/0.01 ML UNIT SQ SCH ×4 (07:52→20:30)
--- NOTE | 2022-11-15 08:25 | Internal Med Progress Note ---
SUBJECTIVE Subjective Patient information: Note initiated : 11/15/22 at 8:17 am Service Date, if different from initiated Date: [] Patient: Kobe Tanner a 77 y/o M admitted on 11/14/22. Chief Complaint: [] Interval history: History of present illness: Mr. Tanner is a 77 year old M Presents to the ED after falling 3 times today while he was in the supermarket. He also fell several times in the past week. Patient states that he suddenly gets weak and falls. He does not lose consciousness does not get dizzy or lightheaded just gets suddenly very weak and falls. 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 He did have an episode of nausea vomiting yesterday. Work-up in the ED revealed positive orthostatic hypotension vital signs. Mild tachycardia since been here. BUN/cr was mildly elevated above baseline. Patient has chronic diarrhea but has been worse since surgery. EKG in the ED showed normal sinus rhythm. Troponin unremarkable. Lactate unremarkable. He also noted to have an nonanion gap acidosis, likely from chronic diarrhea. His chronic anemia appears to be at baseline. Patient denies chest pain shortness of breath. No abdominal pain. 11/15 Feeling little better today. Slept well. Nurse did orthostatic vital signs and he did feel little bit dizzy while getting up but he did not have a blood pressure drop some tachycardia changes. Hemoglobin dropped suspect delusional no gross bleeding noted. Observe for any GI bleeding. Follow-up VBG still shows acidosis although improving. Renal function improving on IV fluids. Review of Systems: Pertinent positives as above. Denies headache/fever/chills/chest or abdominal pain/cough/dyspnea. PHYSICAL EXAM General: Alert, Awake, No acute Distress Eyes/N/T: EOMI, no scleral icterus, Head/Neck: neck supple, full ROM, CV: RRR, No murmurs, Pulm: Clear b/l, no wheezing/rhonchi/rales, no respiratory distress Abd: soft, nontender, +BS x4 Ext: no clubbing/cyanosis/edema, nontender Neuro: Alert, , no focal deficits, moves all extremities, , sensations intact b/l upper/lower Psychiatric: Skin: warm/dry, normal color Constitutional Vitals: Vital Signs Temp Pulse Resp BP Pulse Ox O2 Del Method O2 Flow Rate 97.6 F 89 14 118/66 93 Room Air 0 11/15/22 04:01 11/15/22 06:00 11/15/22 06:00 11/15/22 06:00 11/15/22 06:00 11/14/22 20:00 11/14/22 18:01 Period Temp Pulse Resp BP Sys/Dan Pulse Ox O2 Del Method O2 Flow Rate Last 24 Hr 96.9 F-98.1 F 84-108 12-28 78-184/49-101 92-100 Room Air-Room Air 0 Intake and Output 11/14/22 11/15/22 11/15/22 19:59 03:59 11:59 Intake Total 1000 1600 Output Total 225 850 Balance 775 750 Weight 66.451 kg Intake & Output: Intake & Output 11/14/22 11/15/22 11/15/22 19:59 03:59 11:59 Intake Total 1000 1600 Output Total 225 850 Balance 775 750 Weight 66.451 kg Intake: IV 1000 1000 Sodium Chloride 0.9% 1,000 ml @ 1000 100 mls/hr IV .Q10H DANYELLE Rx#: [id number] Sodium Chloride 0.9% 500 ml @ 1000 Wide Open IV BOLUS ONE Rx#: [id number] Oral 600 Output: Urine Catheter Amount 225 850 Other: Urine Appearance Sediment Urostomy Cloudy Sediment Urine Color Yellow Brown Urostomy Yellow Urine Odor Urostomy Strong OBJ DATA Labs 11/15/22 05:18 11/15/22 05:18 Labs: Abnormal Lab Results 11/15/22 11/15/22 11/14/22 05:18 05:18 17:01 RBC 2.90 L Hgb 8.2 L Hct 26.1 L POC Hct POC VBG pH POC VBG pO2 POC VBG HCO3 POC VBG Total CO2 POC Venous O2 Sat POC VBG Base Excess POC Chloride Chloride 113 H Carbon Dioxide 17 L POC Total CO2 Anion Gap POC BUN BUN 31 H Creatinine 1.7 H POC Creatinine Glucose 143 H POC Glucose Calcium 8.2 L Total Protein 5.8 L Albumin 2.8 L Albumin/Globulin Ratio 0.9 L Urine Appearance Cloudy A Urine Protein 100 A Ur Leukocyte Esterase 500 A Urine RBC 115 H Urine WBC 30 H Urine Bacteria Few A POC Troponin I 11/14/22 11/14/22 11/14/22 14:42 12:44 12:44 RBC 3.46 L Hgb 9.7 L Hct 30.1 L POC Hct POC VBG pH 7.23 L POC VBG pO2 19 L POC VBG HCO3 18.9 L POC VBG Total CO2 20.0 L POC Venous O2 Sat 21.0 L POC VBG Base Excess -9.0 L POC Chloride Chloride Carbon Dioxide 11 L POC Total CO2 Anion Gap 18.0 H POC BUN BUN 40 H Creatinine 2.1 H POC Creatinine Glucose 155 H POC Glucose Calcium Total Protein Albumin Albumin/Globulin Ratio Urine Appearance Urine Protein Ur Leukocyte Esterase Urine RBC Urine WBC Urine Bacteria POC Troponin I 11/14/22 11/14/22 12:28 12:28 RBC Hgb Hct POC Hct 30.0 L POC VBG pH POC VBG pO2 POC VBG HCO3 POC VBG Total CO2 POC Venous O2 Sat POC VBG Base Excess POC Chloride 110 H Chloride Carbon Dioxide POC Total CO2 16.0 L Anion Gap POC BUN 37 H BUN Creatinine POC Creatinine 2.2 H Glucose POC Glucose 166 H Calcium Total Protein Albumin Albumin/Globulin Ratio Urine Appearance Urine Protein Ur Leukocyte Esterase Urine RBC Urine WBC Urine Bacteria POC Troponin I < 0.02 L Meds: Medications Acetaminophen (Acetaminophen 325 Mg Tablet) 650 mg PO Q6HP PRN PRN Reason: fever > 101 Hydrocodone Bitart/Acetaminophen (Hydrocodone/Apap 5/325mg Tablet) 1 tab PO Q4HP PRN PRN Reason: PAIN LEVEL 3-6 Last Admin: 11/15/22 03:27 Dose: 1 tab Albuterol/Ipratropium (Ipratropium/Albuterol 3 Ml Ampul.Neb) 3 ml NEB Q4HP PRN PRN Reason: Shortness Of Breath Ceftriaxone Sodium (Ceftriaxone 1 Gm Vial) 1 gm IV Q24H DANYELLE; Protocol Last Admin: 11/14/22 19:33 Dose: 1 gm Dextrose (Dextrose 50% 50 Ml Vial) 0 ml IV UD PRN PRN Reason: Per Sliding Scale Diagnostic Test (Pha) (Accu-Chek 1 Each Strip) 1 each FS ACHS DANYELLE Last Admin: 11/15/22 07:52 Dose: 1 each Glucose (Dextrose 31 Gm Oral.Susp) 15 gm PO PRN PRN PRN Reason: Hypoglycemia Potassium Chloride 40 meq/ (Dextrose) 520 mls @ 130 mls/hr IV UD PRN PRN Reason: Potassium Level < 3 Magnesium Sulfate (Magnesium Sulfate) 2 gm in 50 mls @ 25 mls/hr IV UD PRN PRN Reason: Magnesium Level </= 1.6 Sodium Chloride (Sodium Chloride 0.9%) 1,000 mls @ 100 mls/hr IV .Q10H [facility] Stop: 11/15/22 13:19 Last Admin: 11/15/22 03:27 Dose: 100 mls/hr Insulin Human Lispro (Insulin Lispro 1 Unit/0.01 Ml Unit) 0 unit SQ ACHS [facility]; Protocol Last Admin: 11/15/22 07:52 Dose: Not Given Loperamide HCl (Loperamide 2 Mg Capsule) 2 mg PO PRN PRN PRN Reason: Diarrhea Metoprolol Tartrate (Metoprolol Tartrate 5 Mg/5 Ml Vial) 5 mg IV Q2HP PRN PRN Reason: Tachyarrhythmias HR>110 Ondansetron HCl (Ondansetron 4 Mg/2 Ml Vial) 4 mg IV Q4HP PRN PRN Reason: Nausea And Vomiting Potassium Chloride (Potassium Chloride 20 Meq Tablet) 40 meq PO UD PRN PRN Reason: Potassium Level of 3-3.5 Potassium Chloride (Potassium Chloride 20 Meq Tablet) 40 meq PO UD PRN PRN Reason: Potassium Level < 3 Sodium Bicarbonate (Sodium Bicarbonate 650 Mg Tablet) 1,300 mg PO TID [facility] Stop: 11/16/22 09:01 Last Admin: 11/14/22 21:40 Dose: 1,300 mg A/P Narrative A/P Narrative: 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: -CT a/p with enlarged RP LAD concerning for metastatic dz *PAF: on Eliquis has not been on any rate controlling medications *DM w/neuropathy: *CAD w/stents: *HTN/HLD: *Anemia, acute on chronic: likely dilutional, but check FOBT, no gross bleeding, *Memory Deficits: *SUBHASH on CKD IIIb: *chronic back pain P: -IVF d/c -hold norvasc/robaxin -imodium -f/u vbg and acid-base status -Rocephin pending UC -renally dose benoit -SSI, -Hold metformin for CKD and consider sulfonylureas(glipizide) or DPP-4 inhibitiors given CKD -cont statin -PT/OT -referral to oncologist for evaluation of metastatic lymphadenopathy and h/o urothelial carcinoma -ppx: Home Eliquis Time Spent With Patient Time: Total time spent is greater than 50% in coordination of care (as documented) at patient's floor/unit and/or counseling patient: Subsequent: Total time with patient: 50 - 65 Minutes QUALITY VTE Deep Vein Thrombosis/Pulmonary Embolism Present on Admission: No
[2022-11-15] MEDS: cefTRIAXone 1 GM VIAL IV SCH (08:40)
[2022-11-15] MEDS: SODIUM BICARBONATE 650 MG TABLET PO SCH ×3 (08:40→20:30)
[2022-11-15] MEDS: GABAPENTIN 300 MG CAPSULE PO SCH ×3 (08:40→20:22)
[2022-11-15] MEDS: ATORVASTATIN 40 MG TABLET PO SCH (08:40)
[2022-11-15] MEDS: APIXABAN 5 MG TABLET PO SCH (08:40)
[2022-11-15] MEDS: DULoxetine 30 MG CAPSULE PO SCH (08:51)
[2022-11-15] MEDS ORDERED: amLODIPine 5 MG TABLET PO SCH (09:00)
--- NOTE | 2022-11-15 10:52 | Discharge Summary ---
Discharge Provider Provider IMPORTANT FOLLOW-UP INFORMATION FOR PCP: Patient information: Note initiated : 11/15/22 at 10:47 am Service Date, if different from initiated Date: [] Patient: Kobe Tanner 77 y/o M admitted on 11/14/22. Chief Complaint: [] Date of admission: 11/14/22 17:10 Discharge date: 11/16/22 Primary care physician: Suzanne Rincon Consults: 11/14/22 15:33 Consult to Physician [CONS] Stat Comment: Consulting Provider: Anmol Arroyo Reason For Exam: Physician to Consult COURSE Hospital Course Hospital course: History of present illness: Mr. Tanner is a 77 year old M Presents to the ED after falling 3 times today while he was in the supermarket. He also fell several times in the past week. Patient states that he suddenly gets weak and falls. He does not lose consciousness does not get dizzy or lightheaded just gets suddenly very weak and falls. 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 He did have an episode of nausea vomiting yesterday. Work-up in the ED revealed positive orthostatic hypotension vital signs. Mild tachycardia since been here. BUN/cr was mildly elevated above baseline. Patient has chronic diarrhea but has been worse since surgery. EKG in the ED showed normal sinus rhythm. Troponin unremarkable. Lactate unremarkable. He also noted to have an nonanion gap acidosis, likely from chronic diarrhea. His chronic anemia appears to be at baseline. Patient denies chest pain shortness of breath. No abdominal pain. 11/15 Feeling little better today. Slept well. Nurse did orthostatic vital signs and he did feel little bit dizzy while getting up but he did not have a blood pressure drop some tachycardia changes. Hemoglobin dropped suspect delusional no gross bleeding noted. Observe for any GI bleeding. Follow-up VBG still shows acidosis although improving. Renal function improving on IV fluids. 11/16 Patient feeling well. Patient is ambulating in the hallways without any falling or severe weakness or syncope. His chronic anemia is bit lower today at 7.8 suspect component of dilution and poor bone marrow production. We will follow- up H&H in a few days. Urine culture not back yet we will send with Levmariceluin to finish course. 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: -CT a/p with enlarged RP LAD concerning for metastatic dz *PAF: on Eliquis has not been on any rate controlling medications *DM w/neuropathy: *CAD w/stents: *HTN/HLD: *Anemia, acute on chronic: likely dilutional, but check FOBT, no gross bleeding, *Memory Deficits: *SUBHASH on CKD IIIb: *chronic back pain P: -hold robaxin -abx pending UC -renally dose benoit -metformin at 500mg qd for CKD, consider sulfonylureas(glipizide) or DPP-4 inhibitiors given CKD -f/u H&H in 2 days -referral to oncologist for evaluation of metastatic lymphadenopathy and h/o urothelial carcinoma Discharge diagnosis: frequent falls orthostatic hypotension UTI generalized weakness deconditio Secondary discharge diagnosis: diarrhea chronic none Metabolic acidosis fine depletion history of ureteral tumor status post surgery last January PA F on Eliquis diabetes CAD hypertension chronic anemia memory deficits acute on chronic kidney disease electrical appliance servicer judy back pain Time Spent with Patient Time attestation: Total time spent providing and/or coordinating discharge services: Time spent: Greater than 30 minutes EXAM Constitutional Vitals: Temp Pulse Resp BP Pulse Ox O2 Del Method O2 Flow Rate 98.5 F 81 19 171/79 100 Room Air 0 11/15/22 09:00 11/15/22 10:00 11/15/22 10:27 11/15/22 10:27 11/15/22 10:27 11/15/22 10:27 11/15/22 07:00 Discharge Data Data Completed and Pending Labs on day of discharge: Labs from last 24 hours 11/15/22 11/15/22 11/15/22 08:40 05:18 05:18 WBC 7.8 RBC 2.90 L Hgb 8.2 L Hct 26.1 L POC Hct MCV 90.0 MCH 28.3 MCHC 31.4 RDW 13.2 Plt Count 249 MPV 10.4 Immature Gran % (Auto) 0.3 Neut % (Auto) 65.4 Lymph % (Auto) 21.0 Hod[place]eman % (Auto) 9.8 Eos % (Auto) 2.7 Baso % (Auto) 0.8 Lymph # (Auto) 1.64 [place]eman # (Auto) 0.77 Eos # (Auto) 0.21 Baso # (Auto) 0.06 Immature Gran # 0.02 Absolute Neutrophils 5.12 POC VBG pH 7.26 L POC VBG pCO2 at Temp 39.2 L POC VBG pO2 24 L POC VBG HCO3 17.5 L POC VBG Total CO2 19.0 L POC Venous O2 Sat 35.0 L POC VBG Base Excess -10.0 L VBG Lactic Acid 0.8 POC Sodium Sodium 139 POC Potassium Potassium 4.2 POC Chloride Chloride 113 H Carbon Dioxide 17 L POC Total CO2 Anion Gap 9.0 POC Anion Gap POC BUN BUN 31 H Creatinine 1.7 H POC Creatinine GFR Calculation 37 Glucose 143 H POC Glucose Uric Acid 6.1 Calcium 8.2 L POC WB Ioniz Calcium Phosphorus 3.0 Magnesium 1.8 Total Bilirubin < 0.2 Direct Bilirubin < 0.2 GGT 16 AST 13 ALT 10 Alkaline Phosphatase 84 Lactate Dehydrogenase 167 NT-Pro-B Natriuret Pep Total Protein 5.8 L Albumin 2.8 L Globulin 3.0 Albumin/Globulin Ratio 0.9 L Triglycerides 128 Beta-Hydroxybutyrate Urine Color Urine Appearance Urine pH Ur Specific [place] Urine Protein Urine Glucose (UA) Urine Ketones Urine Occult Blood Urine Nitrate Urine Bilirubin Prot Sulfosalicylic Acd Urine Urobilinogen Ur Leukocyte Esterase Urine RBC Urine WBC Ur Squamous Epith Cells Ur Transition Epith Cell Ur Renal Epithelial Cell Calcium Carbonate Cryst Calcium Phosphate Cryst Calcium Oxalate Crystal Leucine Crystals Cystine Crystals Uric Acid Crystals Triple Phos Crystals Tyrosine Crystals Other Crystals Amorphous Crystals Urine Bacteria Cellular Casts Epithelial Casts Fatty Casts Hyaline Casts Granular Casts Waxy Casts Broad Casts RBC Casts WBC Casts Other Casts Urine Mucus Urine Trichomonas Ur Yeast w Hyphae Urine Yeast (Budding) Urine Sperm Ur Oval Fat Bodies Ur Free Fat Droplets Ur Culture Indicated? POC Troponin I 11/14/22 11/14/22 11/14/22 17:01 14:42 12:44 WBC RBC Hgb Hct POC Hct MCV MCH MCHC RDW Plt Count MPV Immature Gran % (Auto) Neut % (Auto) Lymph % (Auto) [place] % (Auto) Eos % (Auto) Baso % (Auto) Lymph # (Auto) [place] # (Auto) Eos # (Auto) Baso # (Auto) Immature Gran # Absolute Neutrophils POC VBG pH 7.23 L POC VBG pCO2 at Temp 45.5 POC VBG pO2 19 L POC VBG HCO3 18.9 L POC VBG Total CO2 20.0 L POC Venous O2 Sat 21.0 L POC VBG Base Excess -9.0 L VBG Lactic Acid 0.7 POC Sodium Sodium POC Potassium Potassium POC Chloride Chloride Carbon Dioxide POC Total CO2 Anion Gap POC Anion Gap POC BUN BUN Creatinine POC Creatinine GFR Calculation Glucose POC Glucose Uric Acid 6.7 Calcium POC WB Ioniz Calcium Phosphorus Magnesium Total Bilirubin Direct Bilirubin GGT AST ALT Alkaline Phosphatase Lactate Dehydrogenase NT-Pro-B Natriuret Pep Total Protein Albumin Globulin Albumin/Globulin Ratio Triglycerides Beta-Hydroxybutyrate Urine Color Brown Urine Appearance Cloudy A Urine pH 8.0 Ur Specific [place] 1.013 Urine Protein 100 A Urine Glucose (UA) Negative Urine Ketones Negative Urine Occult Blood 0.20 Urine Nitrate Negative Urine Bilirubin Negative Prot Sulfosalicylic Acd TNP Urine Urobilinogen Negative Ur Leukocyte Esterase 500 A Urine RBC 115 H Urine WBC 30 H Ur Squamous Epith Cells 0 Ur Transition Epith Cell TNP Ur Renal Epithelial Cell TNP Calcium Carbonate Cryst TNP Calcium Phosphate Cryst TNP Calcium Oxalate Crystal TNP Leucine Crystals TNP Cystine Crystals TNP Uric Acid Crystals TNP Triple Phos Crystals TNP Tyrosine Crystals TNP Other Crystals TNP Amorphous Crystals TNP Urine Bacteria Few A Cellular Casts TNP Epithelial Casts TNP Fatty Casts TNP Hyaline Casts TNP Granular Casts TNP Waxy Casts TNP Broad Casts TNP RBC Casts TNP WBC Casts TNP Other Casts TNP Urine Mucus TNP Urine Trichomonas TNP Ur Yeast w Hyphae TNP Urine Yeast (Budding) TNP Urine Sperm TNP Ur Oval Fat Bodies TNP Ur Free Fat Droplets TNP Ur Culture Indicated? yes POC Troponin I 11/14/22 11/14/22 11/14/22 12:44 12:44 12:44 WBC RBC Hgb Hct POC Hct MCV MCH MCHC RDW Plt Count MPV Immature Gran % (Auto) Neut % (Auto) Lymph % (Auto) [place] % (Auto) Eos % (Auto) Baso % (Auto) Lymph # (Auto) [place] # (Auto) Eos # (Auto) Baso # (Auto) Immature Gran # Absolute Neutrophils POC VBG pH POC VBG pCO2 at Temp POC VBG pO2 POC VBG HCO3 POC VBG Total CO2 POC Venous O2 Sat POC VBG Base Excess VBG Lactic Acid POC Sodium Sodium 135 POC Potassium Potassium 4.9 POC Chloride Chloride 106 Carbon Dioxide 11 L POC Total CO2 Anion Gap 18.0 H POC Anion Gap POC BUN BUN 40 H Creatinine 2.1 H POC Creatinine GFR Calculation 29 Glucose 155 H POC Glucose Uric Acid Calcium 9.2 POC WB Ioniz Calcium Phosphorus 3.1 Magnesium Total Bilirubin 0.2 Direct Bilirubin < 0.2 GGT AST 15 ALT 12 Alkaline Phosphatase 108 Lactate Dehydrogenase NT-Pro-B Natriuret Pep 123.7 Total Protein 7.2 Albumin 3.8 3.8 Globulin 3.4 Albumin/Globulin Ratio Triglycerides Beta-Hydroxybutyrate 0.17 Urine Color Urine Appearance Urine pH Ur Specific [place] Urine Protein Urine Glucose (UA) Urine Ketones Urine Occult Blood Urine Nitrate Urine Bilirubin Prot Sulfosalicylic Acd Urine Urobilinogen Ur Leukocyte Esterase Urine RBC Urine WBC Ur Squamous Epith Cells Ur Transition Epith Cell Ur Renal Epithelial Cell Calcium Carbonate Cryst Calcium Phosphate Cryst Calcium Oxalate Crystal Leucine Crystals Cystine Crystals Uric Acid Crystals Triple Phos Crystals Tyrosine Crystals Other Crystals Amorphous Crystals Urine Bacteria Cellular Casts Epithelial Casts Fatty Casts Hyaline Casts Granular Casts Waxy Casts Broad Casts RBC Casts WBC Casts Other Casts Urine Mucus Urine Trichomonas Ur Yeast w Hyphae Urine Yeast (Budding) Urine Sperm Ur Oval Fat Bodies Ur Free Fat Droplets Ur Culture Indicated? POC Troponin I 11/14/22 11/14/22 11/14/22 12:44 12:28 12:28 WBC 9.3 RBC 3.46 L Hgb 9.7 L Hct 30.1 L POC Hct 30.0 L MCV 87.0 MCH 28.0 MCHC 32.2 RDW 13.3 Plt Count 328 MPV 10.3 Immature Gran % (Auto) 0.4 Neut % (Auto) 63.8 Lymph % (Auto) 24.5 Hod[place]eman % (Auto) 8.3 Eos % (Auto) 2.4 Baso % (Auto) 0.6 Lymph # (Auto) 2.28 [place] # (Auto) 0.77 Eos # (Auto) 0.22 Baso # (Auto) 0.06 Immature Gran # 0.04 Absolute Neutrophils 5.92 POC VBG pH POC VBG pCO2 at Temp POC VBG pO2 POC VBG HCO3 POC VBG Total CO2 POC Venous O2 Sat POC VBG Base Excess VBG Lactic Acid POC Sodium 137 Sodium POC Potassium 4.4 Potassium POC Chloride 110 H Chloride Carbon Dioxide POC Total CO2 16.0 L Anion Gap POC Anion Gap 16.0 POC BUN 37 H BUN Creatinine POC Creatinine 2.2 H GFR Calculation Glucose POC Glucose 166 H Uric Acid Calcium POC WB Ioniz Calcium 1.28 Phosphorus Magnesium Total Bilirubin Direct Bilirubin GGT AST ALT Alkaline Phosphatase Lactate Dehydrogenase NT-Pro-B Natriuret Pep Total Protein Albumin Globulin Albumin/Globulin Ratio Triglycerides Beta-Hydroxybutyrate Urine Color Urine Appearance Urine pH Ur Specific [place] Urine Protein Urine Glucose (UA) Urine Ketones Urine Occult Blood Urine Nitrate Urine Bilirubin Prot Sulfosalicylic Acd Urine Urobilinogen Ur Leukocyte Esterase Urine RBC Urine WBC Ur Squamous Epith Cells Ur Transition Epith Cell Ur Renal Epithelial Cell Calcium Carbonate Cryst Calcium Phosphate Cryst Calcium Oxalate Crystal Leucine Crystals Cystine Crystals Uric Acid Crystals Triple Phos Crystals Tyrosine Crystals Other Crystals Amorphous Crystals Urine Bacteria Cellular Casts Epithelial Casts Fatty Casts Hyaline Casts Granular Casts Waxy Casts Broad Casts RBC Casts WBC Casts Other Casts Urine Mucus Urine Trichomonas Ur Yeast w Hyphae Urine Yeast (Budding) Urine Sperm Ur Oval Fat Bodies Ur Free Fat Droplets Ur Culture Indicated? POC Troponin I < 0.02 L Discharge Plan Patient/Caregiver Discharge Instructions Activity: increase activity as tolerated Diet: Consistent Carbohydrate Instructions: Hydrocodone/Acetaminophen (By mouth), Dehydration (GEN), Hypotension (GEN), Fall Prevention (GEN) Activity Restrictions/Additional Instructions: Referral to see oncology in 3 to 14 days for enlarged retroperitoneal lymphadenopathy concerning for metastatic disease with history of urothelial carcinoma. A referral has been sent to [facility]; they will contact you to schedule an appointment Increase activity as tolerated, continue with a consistent carbohydrate diet. You have been given a hard copy prescription to take to the pharmacy of your choice. Doctor has changed some of your medications; take your medications as prescribed. This discharge packet is provided to you to help keep you informed about your care. We want to ensure you get everything you need when you go home. You will also be receiving a call from us in a few days to follow up with you and see how you are doing since your discharge. This gives us a chance to listen to any concerns you maybe experiencing since you were discharged or any additional needs you may have, as well as providing us feedback on your care experience. We strive to always provide excellent care and thank you for your feedback and for choosing [facility]. Prescriptions: New hydrocodone-acetaminophen 5-325 mg tablet 1 tab PO Q6H PRN (Reason: pain) Qty: 20 0RF levofloxacin 750 mg tablet 750 mg PO QDAY Qty: 4 0RF Rx Instructions: start on 11/17/2022 Continued amlodipine 5 mg tablet 5 mg PO QDAY atorvastatin 40 mg tablet 40 mg PO QDAY temazepam 30 mg capsule 30 mg PO QHS metformin 500 mg tablet extended release 24 hr 500 mg PO QDAY Eliquis 5 mg tablet 5 mg PO QDAY Patient Comments: [NO ORIGINAL SIG] duloxetine 30 mg capsule,delayed release(DR/EC) 30 mg PO QDAY Changed gabapentin [Neurontin] 300 mg capsule 300 mg PO TID Qty: 1 0RF Discontinued methocarbamol [Robaxin] 750 mg Tablet 750 mg PO QID Other Ambulatory Orders: Complete Blood Count (Routine) Timeframe: 2 Days Facility: [facility] - Location: Laboratory Ordered By: Anmol Arroyo Follow Up Plan Follow up with: Suzanne Rincon MD [Primary Care Provider] - (Call your PCP to set up a follow up appointment as needed.) Lai Jimenez ARNP [Adv Reg Nurse Practitioner] - (Continue with your current appointment today. ) Patient Disposition: Home, Self-Care Prognosis: Fair Overall status at discharge: patient is progressing back to baseline Discharge Orders: Discharge Order (Routine); Ordered 11/16/22 Ordered By: Anmol Arroyo QUALITY VTE Deep Vein Thrombosis/Pulmonary Embolism Present on Admission: No
[2022-11-15] MEDS ORDERED: hydrALAZINE 20 MG/ML VIAL IV PRN (16:26)
[2022-11-15] MEDS ORDERED: amLODIPine 5 MG TABLET PO ONE (16:26)
[2022-11-15] MEDS ORDERED: TEMAZEPAM 15 MG CAPSULE PO SCH (21:00)
[2022-11-16] MEDS: HYDROcodone/APAP 5/325MG TABLET PO PRN ×2 (02:17→08:05)
[2022-11-16 04:49] LABS: ABG Methemoglobin 0.3 % (0.4-1.5); Total Hemoglobin 9.2 gm/Dl (13.5-16.5); VBG Base Excess -5 (-2-3); VBG HCO3 20.3 mmol/L (24.0-28.0); VBG Oxygen Saturation 88.7 % (40.0-70.0); VBG PCO2 36.2 mmHg (41.0-51.0); VBG PH 7.37 U (7.32-7.42); VBG PO2 73.3 mmHg (25.0-40.0); VBG Total CO2 21.4 mmol/L (25.0-29.0)
[2022-11-16 04:51] LABS: Hematocrit 25.2 % (40.1-51.0); Hemoglobin 7.8 g/dL (13.7-17.5)
[2022-11-16 05:08] LABS: ALT/SGPT 9 U/L (<40); AST/SGOT 12 U/L (<40); Albumin 2.8 gm/dL (3.2-5.2); Albumin/Globulin Ratio 0.9 (1.0-2.3); Alkaline Phosphatase 82 U/L (39-117); Bilirubin,Direct < 0.2 mg/dL (0-0.3); Bilirubin,Total < 0.2 mg/dL (0.1-1.0); Blood Urea Nitrogen 24 mg/dL (8-23); Calcium 8.4 mg/dL (8.6-10.4); Carbon Dioxide 20 mmol/L (22-30); Chloride 108 mmol/L (96-108); Glomerular Filtration Rate 37; Glucose 103 mg/dL (70-105); Lactate Dehydrogenase 153 U/L (135-225); Phosphorous 2.8 mg/dL (2.5-4.5); Triglycerides 145 mg/dL (<150); Uric Acid 5.7 mg/dL (2.5-8.0)
[2022-11-16] MEDS: INSULIN LISPRO 1 UNIT/0.01 ML UNIT SQ SCH (07:06)
--- NOTE | 2022-11-16 07:33 | EKG ---
[facility] Test Date: 2022-11-14 Pat Name: Kobe Tanner Department: ED Room: Gender: Male Mounter Hand: SS : [id number] Requested By: Alvin Heck Order Number: [id number] Reading MD: Homer Robbins M.D. Measurements Intervals [place] Rate: 93 P: 16 [place]: 132 QRS: -49 QRSD: 88 T: 63 QT: 350 QTc: 435 Interpretive Statements Sinus rhythm Abnormal R-wave progression, late transition Inferior infarct, old Electronically Signed On 11-16-2022 7:32:45 PDT by Homer Robbins M.D. /[id number]
[2022-11-16] MEDS: APIXABAN 5 MG TABLET PO SCH (08:05)
[2022-11-16] MEDS: GABAPENTIN 300 MG CAPSULE PO SCH (08:05)
[2022-11-16] MEDS: SODIUM BICARBONATE 650 MG TABLET PO SCH (08:05)
[2022-11-16] MEDS: ATORVASTATIN 40 MG TABLET PO SCH (08:05)
[2022-11-16] MEDS: DULoxetine 30 MG CAPSULE PO SCH (08:05)
[2022-11-16] MEDS: cefTRIAXone 1 GM VIAL IV SCH (08:16)
[2022-11-16] MEDS ORDERED: amLODIPine 5 MG TABLET PO SCH (09:00)
== END 2022-11-16 08:36 | disposition home or self-care (01) ==
LOC: ED 12:05 → ICU 12:05
PROVIDERS: ADMIT Internal Medicine; ATTEND Internal Medicine